=== PATIENT | male | born 1960 | race African-American/Black ===

== ENCOUNTER 2024-03-24 13:52 | Inpatient (IN) | payer OTHER ==
[2024-03-24] MEDS ORDERED: ACETAMINOPHEN 500 MG TAB ONE (14:36)
[2024-03-24] MEDS ORDERED: IBUPROFEN 400 MG TAB ONE (14:36)
[2024-03-24] MEDS ORDERED: CEFTRIAXONE 2000 MG/VIAL ONE (14:41)
[2024-03-24] MEDS ORDERED: levoFLOXacin 750 MG TAB ONE (14:41)
[2024-03-24] MEDS ORDERED: NA CHLORIDE 0.9% 3,000 ML ONE (14:42)
[2024-03-24 15:06] LABS: PT Prothrombin Time 13.1 SECONDS (9.4-12.5); Protime INR 1.18
[2024-03-24 15:08] LABS: Absolute Basophils 0.1 K/uL (0-0.5); Absolute Lymphocytes (CBC) 2.5 K/uL (0.7-4.9); Absolute Monocytes 1.5 K/uL (0.1-1.3); Absolute Neutrophil 6.7 K/uL (1.8-8.0); Basophils % 0.6 % (0-1.3); Eosinophils % 0.1 % (0-4.4); Hematocrit 40.2 % (39.6-49.0); Hemoglobin 13.3 g/dL (13.6-17.9); Lymphocytes % 22.9 % (15.3-44.8); MCH 27.3 pg (27.0-35.0); MCV 82.9 fL (80-100); MPV 8.2 fL (7.6-11.3); Neutrophils % 62.4 % (41.7-73.7); Nucleated Red Blood Cells % 0.1 % (0-0); Platelets 190 thou/uL (152-406); RBC Red Blood Cell Count 4.85 M/uL (4.33-5.43); Red Cell Distribution Width 15.1 % (12.1-15.2)
--- NOTE | 2024-03-24 15:19 | RAD REPORT ---
EXAM DESCRIPTION: Sylvia Single View03/24/2024 2:55 pm CLINICAL HISTORY: Fever COMPARISON: none FINDINGS: The lungs appear clear of acute infiltrate. The heart is normal size IMPRESSION: No acute abnormalities displayed
[2024-03-24 15:22] LABS: Albumin/Globulin Ratio 0.5 (1.1-1.8); Anion Gap 11.3 mEq/L (5.0-15.0); Bilirubin Direct 0.3 mg/dL (0-0.2); Bilirubin Indirect, Calculated 0.5 mg/dL (0.2-0.8); Bilirubin Total 0.8 mg/dL (0.2-1.0); Globulin 5.5 g/dL (2.3-3.5); Magnesium 1.9 mg/dL (1.6-2.4); Potassium 3.3 mEq/L (3.5-5.1); Protein, Total 8.5 g/dL (6.4-8.2); Troponin High Sensitivity 42.3 pg/mL (<58.9)
[2024-03-24 16:23] LABS: White Blood Cell Scan OK (OK)
[2024-03-24 16:24] LABS: Blood Morphology Comment NOT SEEN (NOT SEEN); Platelet Estimate ADEQ
[2024-03-24] MEDS ORDERED: POTASSIUM 25 MEQ EFFERV TAB ONE (16:57)
[2024-03-24 17:00] LABS: Specific Gravity > 1.030 (1.005-1.030); Sqamous Epithelial <5 /HPF (None Seen); Urine Bacteria None Seen /HPF (<20); Urine Bilirubin NEGATIVE (Negative); Urine Blood 2+ (Negative); Urine Clarity Extremely Turbid (Clear); Urine Color Yellow (Yellow); Urine Culture Reflex Order REFLEXED; Urine Glucose NEGATIVE (Negative); Urine Ketones TRACE (Negative); Urine Microscopic Reflex YN ORDER UMIC; Urine Mucus Slight /HPF (None Seen); Urine Nitrite NEGATIVE (Negative); Urine Protein 1+ (Negative); Urine RBC 21-50 /HPF (None Seen); Urine Urobilinogen 1+ (Normal); Urine WBC >50 /HPF (<5); Urine pH 5.5 (5.0-7.0)
--- NOTE | 2024-03-24 17:07 | RAD REPORT ---
EXAM DESCRIPTION: CT - Abdomen Pelvis W Contrast - 03/24/2024 4:34 pm CLINICAL HISTORY: Abdominal pain COMPARISON: 2014 TECHNIQUE: Computed axial tomography of the abdomen pelvis was obtained. 100 cc Isovue-300 was admin istered intravenously. Oral contrast was not requested which limits evaluation of bowel and appendix All CT scans are performed using dose optimization technique as appropriate and may include automated exposure control or mA/KV adjustment according to patient size. FINDINGS: 6.5 centimeter hepatic cyst previously measured 3.5 centimeters. Additional smaller hepati c cysts are present. Spleen, pancreas, adrenals are unremarkable. Small right renal cyst. 1 centimeter low to intermediate density mass upper pole left kidney. This is at the site of a previo us 4.5 centimeter simple cyst. Normal appendix. No evidence diverticulitis. Prostate gland mildly moderately enlarged Lucent and sclerotic areas are present throughout the sacrum without significant change. IMPRESSION: Hepatic cysts. Largest 6.3 centimeters 1 centimeter mass left kidney probably is the residua of a cyst. It is recommended that the patient a followup renal ultrasound in 1 year for re-evaluation. Lucent and sclerotic areas are present throughout the sacrum without significant change presumably Pa get's disease
--- NOTE | 2024-03-24 17:19 | EDPHYS ---
Physician Documentation [facility] Name: Davy Edwards Age: 63 yrs Sex: Male : 1960 Arrival Date: 03/24/2024 Time: 13:52 Bed 3 Private MD: ED Physician Taurus Johns HPI: 03/24 15:26 This 63 yrs old Black Male presents to ER via Ambulatory with complaints of Urinary jody Problem. 15:26 The patient presents with urinary symptoms, dysuria, urinary frequency, retention. jody Onset: The symptoms/episode began/occurred 2 day(s) ago. Modifying factors: The symptoms are alleviated by nothing, the symptoms are aggravated by urinating. fever , dusuria. Associated signs and symptoms: Pertinent positives: dysuria, fever. The patient reports fever, that was measured at 103 degrees Fahrenheit. Modifying factors: there are no obvious modifying factors. Associated signs and symptoms: Pertinent positives: chills, nausea. Historical: - Allergies: 14:11 No Known Allergies; cm10 - Home Meds: 14:11 Lisinopril Oral [Active]; hydrochlorothiazide Oral [Active]; pravastatin oral [Active]; cm10 - PMHx: 14:11 Hypertensive disorder; Hypercholesterolemia; cm10 - PSHx: 14:11 None; cm10 - Immunization history:: Adult Immunizations up to date. - Infectious Disease History:: Denies. - Social history:: Smoking status: Patient denies any tobacco usage or history of. - Family history:: not pertinent. ROS: 15:26 Eyes: Negative for injury, pain, redness, and discharge, ENT: Negative for injury, jody pain, and discharge, Neck: Negative for injury, pain, and swelling, Cardiovascular: Negative for chest pain, palpitations, and edema, Respiratory: Negative for shortness of breath, cough, wheezing, and pleuritic chest pain, Abdomen/GI: Negative for abdominal pain, nausea, vomiting, diarrhea, and constipation, Back: Negative for injury and pain, : Negative for injury, bleeding, discharge, and swelling, MS/Extremity: Negative for injury and deformity, Skin: Negative for injury, rash, and discoloration, Neuro: Negative for headache, weakness, numbness, tingling, and seizure, Psych: Negative for depression, anxiety, suicide ideation, homicidal ideation, and hallucinations, Allergy/Immunology: Negative for hives, rash, and allergies, Endocrine: Negative for neck swelling, polydipsia, polyuria, polyphagia, and marked weight changes, Hematologic/Lymphatic: Negative for swollen nodes, abnormal bleeding, and unusual bruising, 15:26 Constitutional: Positive for body aches, chills, fever, malaise, 15:26 : Positive for urinary frequency, small amounts, burning with urination, difficulty urinating, foul smelling urine, Exam: 15:32 Head/Face: Normocephalic, atraumatic. Eyes: Pupils equal round and reactive to light, jody extra-ocular motions intact. Lids and lashes normal. Conjunctiva and sclera are non-icteric and not injected. Cornea within normal limits. Periorbital areas with no swelling, redness, or edema. ENT: Nares patent. No nasal discharge, no septal abnormalities noted. Tympanic membranes are normal and external auditory canals are clear. Oropharynx with no redness, swelling, or masses, exudates, or evidence of obstruction, uvula midline. Mucous membranes moist. Neck: Trachea midline, no thyromegaly or masses palpated, and no cervical lymphadenopathy. Supple, full range of motion without nuchal rigidity, or vertebral point tenderness. No Meningismus. Chest/axilla: Normal chest wall appearance and motion. Nontender with no deformity. No lesions are appreciated. Cardiovascular: Regular rate and rhythm with a normal S1 and S2. No gallops, murmurs, or rubs. Normal PMI, no JVD. No pulse deficits. Respiratory: Lungs have equal breath sounds bilaterally, clear to auscultation and percussion. No rales, rhonchi or wheezes noted. No increased work of breathing, no retractions or nasal flaring. Abdomen/GI: Soft, non-tender, with normal bowel sounds. No distension or tympany. No guarding or rebound. No evidence of tenderness throughout. Back: No spinal tenderness. No costovertebral tenderness. Full range of motion. Skin: Warm, dry with normal turgor. Normal color with no rashes, no lesions, and no evidence of cellulitis. MS/ Extremity: Pulses equal, no cyanosis. Neurovascular intact. Full, normal range of motion. Neuro: Awake and alert, GCS 15, oriented to person, place, time, and situation. Cranial nerves II-XII grossly intact. Motor strength 5/5 in all extremities. Sensory grossly intact. Cerebellar exam normal. Normal gait. Psych: Awake, alert, with orientation to person, place and time. Behavior, mood, and affect are within normal limits. 15:32 Constitutional: The patient appears febrile, obese, 15:32 ECG was reviewed by the Attending Physician. 15:32 : CVA tenderness, is absent, Male external genitalia: normal, Bladder: is normal, Vital Signs: 14:09 BP 137 / 83; Pulse 110; Resp 19; Temp 103(O); Pulse Ox 98% ; Weight 99.79 kg; Height 5 cm10 ft. 10 in. ; Pain 7/10; 14:33 BP 111 / 69; Pulse 100; Resp 18; Pulse Ox 97% ; ko1 15:41 BP 125 / 79; Pulse 103; Resp 18; Pulse Ox 99% ; ko1 15:51 Temp 99.7(O); ko1 17:20 BP 142 / 83; Pulse 92; Resp 16; Temp 98.9(O); Pulse Ox 99% ; ko1 14:09 Body Mass Index 31.57 (99.79 kg, 177.8 cm) cm10 14:09 Pain Scale: Adult cm10 MDM: 14:02 Patient medically screened. jody 15:28 Differential diagnosis: nonspecific abdominal pain, UTI, urinary retention, jody prostatitis, urethritis, viral Infection, bacterial infection, URI, bronchitis, UTI. Differential Diagnosis altered mental status, sepsis, flu. Data reviewed: vital signs, nurses notes, lab test result(s), radiologic studies, CT scan. Consideration of Admission/Observation Patient was admitted/placed on observation. Escalation of care including admission/observation considered. I considered the following discharge prescriptions or medication management in the emergency department Medications were administered in the Emergency Department. See MAR. Independent interpretation of the following test(s) in the Emergency Department EKG: See my EKG interpretation above. Test considered but Not performed: Ultrasound no abd usg. Historians other than the Patient: Spouse/Significant Other: well informed. Care significantly affected by the following chronic conditions: Hypertension, high chlesterol, uti. Counseling: I had a detailed discussion with the patient and/or guardian regarding the historical points, exam findings, and any diagnostic results supporting the discharge/admit diagnosis, lab results, radiology results, the need for further work-up and treatment in the hospital. 03/24 14:02 Order name: Urinalysis w/ reflexes; Complete Time: 17:08 [facility] 03/24 14:38 Order name: Basic Metabolic Panel; Complete Time: 15:25 [facility] 03/24 14:38 Order name: CBC with Diff; Complete Time: 16:50 [facility] 03/24 14:38 Order name: LFT's; Complete Time: 15:25 [facility] 03/24 14:38 Order name: Magnesium; Complete Time: 15:25 [facility] 03/24 14:38 Order name: NT PRO-BNP; Complete Time: 15:25 [facility] 03/24 14:38 Order name: PT-INR; Complete Time: 15:25 [facility] 03/24 14:38 Order name: Troponin HS; Complete Time: 15:25 [facility] 03/24 14:38 Order name: Blood Culture Adult (2) [facility] 03/24 14:38 Order name: Lipase; Complete Time: 15:25 [facility] 03/24 14:38 Order name: Lactate w/ 2H reflex if indic.; Complete Time: 15:25 [facility] 03/24 15:13 Order name: CBC Smear Scan; Complete Time: 16:50 [facility] 03/24 15:44 Order name: Urine Culture [facility] 03/24 18:34 Order name: Urinalysis w/ reflexes [facility] 03/24 18:34 Order name: Basic Metabolic Panel [facility] 03/24 18:34 Order name: Basic Metabolic Panel [facility] 03/24 14:38 Order name: XRAY Chest (1 view); Complete Time: 15:25 [facility] 03/24 14:38 Order name: CT Abd/Pelvis - IV Contrast Only [facility] 03/24 14:38 Order name: EKG; Complete Time: 14:39 [facility] 03/24 14:38 Order name: Cardiac monitoring; Complete Time: 15:01 [facility] 03/24 14:38 Order name: EKG - Nurse/Tech; Complete Time: 14:47 [facility] 03/24 14:38 Order name: IV Saline Lock; Complete Time: 15:01 [facility] 03/24 14:38 Order name: Labs collected and sent; Complete Time: 15:01 [facility] 03/24 14:38 Order name: O2 Per Protocol; Complete Time: 14:39 jody 03/24 14:38 Order name: O2 Sat Monitoring; Complete Time: 14:39 jody EC:32 Rate is 112 beats/min. Rhythm is regular. QRS Lucile is Normal. NC interval is normal. jody QRS interval is normal. QT interval is normal. No Q waves. T waves are Normal. No ST changes noted. Clinical impression: Sinus tachycardia and No evidence of ischemia. Interpreted by me. Reviewed by me. Administered Medications: 14:39 Drug: Acetaminophen PO 1000 mg PO once Route: PO; ko1 15:10 Follow up: Response: No adverse reaction ko1 15:55 Follow up: Response: Temperature is decreased jl7 14:39 Drug: Ibuprofen PO 800 mg PO once Route: PO; ko1 15:10 Follow up: Response: No adverse reaction ko1 15:55 Follow up: Response: No adverse reaction; Temperature is decreased jl7 15:00 Drug: NS 0.9% IV 1000 ml IV at 1 bolus Per protocol; 1000 mL bolus Route: IV; Rate: 1 jl7 bolus; Site: right antecubital; 15:45 Follow up: Response: No adverse reaction; IV Status: Completed infusion; IV Intake: ko1 1000ml 15:01 Drug: LevOfloxacin PO 750 mg PO once Route: PO; jl7 15:40 Follow up: Response: No adverse reaction ko1 15:01 Drug: Rocephin IV 2 grams IV at per protocol once; Given slow IV push per [employer] jl7 instructions Route: IV; Rate: per protocol; Site: right antecubital; 15:41 Follow up: Response: No adverse reaction; IV Status: Completed infusion; IV Intake: [id number] 15:40 Drug: NS 0.9% IV 1000 ml IV at 1 bolus Per protocol; 1000 mL bolus Route: IV; Rate: 1 ko1 bolus; Site: right antecubital; 16:45 Follow up: Response: No adverse reaction; IV Status: Completed infusion; IV Intake: ko1 1000ml 16:59 Drug: NS 0.9% IV 1000 ml IV at 1 bolus Per protocol; 1000 mL bolus Route: IV; Rate: 1 ko1 bolus; Site: right antecubital; 16:59 Drug: Potassium PO Effervescent Tablet 25 mEq PO once; dissolve in 4 ounces of water or ko1 juice Route: PO; 17:21 Follow up: Response: No adverse reaction ko1 Disposition Summary: 03/24/24 17:18 Hospitalization Ordered Notes: Hospitalization Status: Inpatient Admission jody Provider: Rayo Sanchez cha Location: Telemetry/MedSurg (Inpatient) jody Condition: Fair jody Problem: new jody Symptoms: have improved jody Bed/Room Type: Standard jody Room Assignment: 230(03/24/24 19:43) eb Diagnosis - UTI/ Urinary tract infection, site not specified jody - Acute prostatitis jody - Fever, unspecified joyd Forms: - Medication Reconciliation Form jody - SBAR form jody - Leadership Thank You Letter jody Signatures: Dispatcher [employer] EDMS Taurus Johns MD MD cha Leal, Jahala, RN RN jl7 Nyla Weinstein Kathy, RN RN ko1 Ashly James RN RN cm10 Corrections: (The following items were deleted from the chart) 14:39 14:39 BASIC METABOLIC PANEL+C.LAB.BRZ ordered. EDMS EDMS 14:39 14:39 CBC+H.LAB.BRZ ordered. EDMS EDMS 14:39 14:39 HEPATIC FUNCTION+C.LAB.BRZ ordered. EDMS EDMS 14:39 14:39 MAGNESIUM+C.LAB.BRZ ordered. EDMS EDMS 14:39 14:39 PROBNP+C.LAB.BRZ ordered. EDMS EDMS 14:39 14:39 PROTIME (+INR)+COAG.LAB.BRZ ordered. EDMS EDMS 14:39 14:39 Troponin High Sensitivity+C.LAB.BRZ ordered. EDMS EDMS 14:39 14:39 BLOOD CULTURE*+BA.LAB.BRZ ordered. EDMS EDMS 14:39 14:39 LIPASE+C.LAB.BRZ ordered. EDMS EDMS 14:39 14:39 LACTATE+C.LAB.BRZ ordered. EDMS EDMS 18:50 17:18 jody eb 19:43 18:50 215 eb eb
--- NOTE | 2024-03-24 17:19 | ER ---
Nurse's Notes [facility] Name: Davy Edwards Age: 63 yrs Sex: Male : 1960 Arrival Date: 03/24/2024 Time: 13:52 Bed 3 Private MD: Diagnosis: UTI/ Urinary tract infection, site not specified;Acute prostatitis;Fever, unspecified Presentation: 03/24 14:09 Chief complaint: Patient states: Headache, chills and difficulty urinating onset cm10 . Pt states that he has pressure in his abdomen. Coronavirus screen: Client denies travel out of the [place] in the last 14 days. Ebola Screen: Patient denies travel to an Ebola-affected area in the 21 days before illness onset. No symptoms or risks identified at this time. Initial Sepsis Screen: Does the patient meet any 2 criteria? No. Patient's initial sepsis screen is negative. Does the patient have a suspected source of infection? No. Patient's initial sepsis screen is negative. Risk Assessment: Do you want to hurt yourself or someone else? Patient reports no desire to harm self or others. Onset of symptoms was March 24, 2024. 14:09 Method Of Arrival: Ambulatory cm10 14:09 Acuity: RON 2 cm10 Triage Assessment: 14:13 General: Appears in no apparent distress. comfortable, Behavior is calm, cooperative. cm10 Neuro: No deficits noted. Level of Consciousness is awake, alert, obeys commands, Oriented to person, place, time, situation, Appropriate for age. Respiratory: No deficits noted. Airway is patent Respiratory effort is even, unlabored, Respiratory pattern is regular, symmetrical. Historical: - Allergies: 14:11 No Known Allergies; cm10 - Home Meds: 14:11 Lisinopril Oral [Active]; hydrochlorothiazide Oral [Active]; pravastatin oral [Active]; cm10 - PMHx: 14:11 Hypertensive disorder; Hypercholesterolemia; cm10 - PSHx: 14:11 None; cm10 - Immunization history:: Adult Immunizations up to date. - Infectious Disease History:: Denies. - Social history:: Smoking status: Patient denies any tobacco usage or history of. - Family history:: not pertinent. Screenin:47 [facility] ED Fall Risk Assessment (Adult) History of falling in the last 3 months, ko1 including since admission No falls in past 3 months (0 pts) Confusion or Disorientation No (0 pts) Intoxicated or Sedated No (0 pts) Impaired Gait No (0 pts) Mobility Assist Device Used No (0 pt) Altered Elimination No (0 pt) Score/Fall Risk Level 0 - 2 = Low Risk Oriented to surroundings, Maintained a safe environment, Educated pt \T\ family on fall prevention, incl call for assistance when getting out of bed, Assessed \T\ reinforced patient's understanding of fall precautions, Provided non-skid footwear, Hourly rounding (assess needs \T\ fall precautionary measures) done. Abuse screen: Denies threats or abuse. Denies injuries from another. Nutritional screening: No deficits noted. Tuberculosis screening: No symptoms or risk factors identified. Assessment: 14:50 General: Appears uncomfortable, ill, Behavior is calm, cooperative, appropriate for ko1 age. Pain: Complains of pain in back. Neuro: No deficits noted. Cardiovascular: No deficits noted. Respiratory: No deficits noted. GI: No deficits noted. :. EENT: No deficits noted. Derm: Skin temperature is hot. Musculoskeletal: No deficits noted. 14:54 : No deficits noted. ko1 15:55 Reassessment: Patient appears in no apparent distress at this time. Patient and/or jl7 family updated on plan of care and expected duration. Pain level reassessed. Patient is alert, oriented x 3, equal unlabored respirations, skin warm/dry/pink. Patient states feeling better. Patient states symptoms have improved. Vital Signs: 14:09 BP 137 / 83; Pulse 110; Resp 19; Temp 103(O); Pulse Ox 98% ; Weight 99.79 kg; Height 5 cm10 ft. 10 in. ; Pain 7/10; 14:33 BP 111 / 69; Pulse 100; Resp 18; Pulse Ox 97% ; ko1 15:41 BP 125 / 79; Pulse 103; Resp 18; Pulse Ox 99% ; ko1 15:51 Temp 99.7(O); ko1 17:20 BP 142 / 83; Pulse 92; Resp 16; Temp 98.9(O); Pulse Ox 99% ; ko1 14:09 Body Mass Index 31.57 (99.79 kg, 177.8 cm) cm10 14:09 Pain Scale: Adult cm10 ED Course: 13:55 Patient arrived in ED. ra3 14:02 Taurus Johns MD is Attending Physician. jody 14:11 Triage completed. cm10 14:13 Arm band placed on Patient placed in an exam room, on a stretcher. cm10 14:18 Mary Beth Zee, RN is Primary Nurse. ko1 14:47 Patient has correct armband on for positive identification. Bed in low position. Call ko1 light in reach. Side rails up X2. Provided Education on: labs, meds. Client placed on continuous cardiac and pulse oximetry monitoring. NIBP monitoring applied. radiation monitor on. Door closed. Noise minimized. Lights dimmed. Warm blanket given. Pillow given. 14:47 EKG done, by ED staff, reviewed by Taurus Johns MD. ko1 14:57 XRAY Chest (1 view) In Process Unspecified. EDMS 15:38 No provider procedures requiring assistance completed. ko1 15:41 Blood Culture Adult (2) Sent. ko1 15:41 CBC Smear Scan Sent. ko1 16:36 CT Abd/Pelvis - IV Contrast Only In Process Unspecified. EDMS 16:50 Urine Culture Sent. ko1 16:50 Urinalysis w/ reflexes Sent. ko1 17:18 Rayo Sanchez MD is Hospitalizing Provider. [facility] 17:19 Patient admitted, IV remains in place. ko1 Administered Medications: 14:39 Drug: Acetaminophen PO 1000 mg PO once Route: PO; ko1 15:10 Follow up: Response: No adverse reaction ko1 15:55 Follow up: Response: Temperature is decreased jl7 14:39 Drug: Ibuprofen PO 800 mg PO once Route: PO; ko1 15:10 Follow up: Response: No adverse reaction ko1 15:55 Follow up: Response: No adverse reaction; Temperature is decreased jl7 15:00 Drug: NS 0.9% IV 1000 ml IV at 1 bolus Per protocol; 1000 mL bolus Route: IV; Rate: 1 jl7 bolus; Site: right antecubital; 15:45 Follow up: Response: No adverse reaction; IV Status: Completed infusion; IV Intake: ko1 1000ml 15:01 Drug: LevOfloxacin PO 750 mg PO once Route: PO; jl7 15:40 Follow up: Response: No adverse reaction ko1 15:01 Drug: Rocephin IV 2 grams IV at per protocol once; Given slow IV push per pharmarcy jl7 instructions Route: IV; Rate: per protocol; Site: right antecubital; 15:41 Follow up: Response: No adverse reaction; IV Status: Completed infusion; IV Intake: [id number] 15:40 Drug: NS 0.9% IV 1000 ml IV at 1 bolus Per protocol; 1000 mL bolus Route: IV; Rate: 1 ko1 bolus; Site: right antecubital; 16:45 Follow up: Response: No adverse reaction; IV Status: Completed infusion; IV Intake: ko1 1000ml 16:59 Drug: NS 0.9% IV 1000 ml IV at 1 bolus Per protocol; 1000 mL bolus Route: IV; Rate: 1 ko1 bolus; Site: right antecubital; 16:59 Drug: Potassium PO Effervescent Tablet 25 mEq PO once; dissolve in 4 ounces of water or ko1 juice Route: PO; 17:21 Follow up: Response: No adverse reaction ko1 Medication: 15:38 VIS not applicable for this client. ko1 Intake: 15:41 IV: 10ml; Total: 10ml. ko1 15:45 IV: 1000ml; Total: 1010ml. ko1 16:45 IV: 1000ml; Total: 2010ml. ko1 Outcome: 17:18 Decision to Hospitalize by Provider. jody 17:19 Admitted to ER Hold. Please see [facility] for further documentation. ko1 17:19 Condition: stable 17:19 Instructed on the need for admit, 20:17 Patient left the ED. iw Signatures: Dispatcher [employer] EDTaurus Ngo MD MD cha Williams, Irene RN Prem Mendoza RN RN jl7 Mary Beth Zee RN RN basia1 Ashly James RN RN cm10 Carolyn Talley ra3 Corrections: (The following items were deleted from the chart) 14:16 14:09 Acuity: RON 3 cm10 cm10
[2024-03-24] MEDS ORDERED: ONDANSETRON 4 MG/2 ML VIAL IV PRN (18:29)
[2024-03-24] MEDS ORDERED: HYDROMORPHONE HCL 1 MG/ML INJ IV PRN (18:32)
--- NOTE | 2024-03-24 18:36 | P.HP ---
Certification for Inpatient Patient admitted to: Inpatient With expected LOS: >2 Midnights Practitioner: I am a practitioner with admitting privileges, knowledge of patient current condition, hospital course, and medical plan of care. Services: Services provided to patient in accordance with Admission requirements found in Title 42 Section 412.3 of the Code of Federal Regulations Patient History Date of Service: 03/24/24 Reason for admission: UTI History of Present Illness: Patient is a 63 year old male who is presenting with acutely worsening urinary symptoms. His symptoms started 2 days with fever. He also developed urinary retention. He spiked a fever of 103 degrees. Work up in the ER showed abnormal UA. CT with mildly enlarged prostate. Physical Examination - Physical Exam General: In no apparent distress HEENT: Atraumatic, Normocephalic Neck: Supple Respiratory: Clear to auscultation bilaterally, Normal air movement Cardiovascular: No edema, Normal pulses, Regular rate/rhythm, Normal S1 S2 Neurological: Normal speech - Studies Laboratory Data (last 24 hrs) 03/24/24 03/24/24 03/24/24 14:50 14:50 14:50 WBC 10.80 Hgb 13.3 L Hct 40.2 Plt Count 190 PT 13.1 H INR 1.18 Sodium 133 L Potassium 3.3 L BUN 22 H Creatinine 1.69 H Glucose 104 Magnesium 1.9 Total Bilirubin 0.8 AST 76 H ALT 95 H Alkaline Phosphatase 243 H Lipase 37 Assessment and Plan - Problems (Diagnosis) (1) UTI (urinary tract infection) Current Visit: Yes Status: Acute (2) Hypertension Current Visit: Yes Status: Acute (3) Hyperlipidemia Current Visit: Yes Status: Acute - Plan Assessment This a generally healthy 63 year old male who is being admitted with: UTI EMMANUEL HTN HLD PLAN: Admit inpatient Start patient on levofloxacin and IV fluid Follow Urine and blood cx Patient is full code - Advance Directives Does patient have a Living Will: No Does patient have a Durable POA for Healthcare: No
[2024-03-24] MEDS: D5 0.45 NS 1,000 ML IV SCH (20:39)
[2024-03-24 23:54] LABS: Specific Gravity > 1.030 (1.005-1.030); Sqamous Epithelial None Seen /HPF (None Seen); Urine Bacteria None Seen /HPF (<20); Urine Bilirubin NEGATIVE (Negative); Urine Blood 3+ (OVER) (Negative); Urine Clarity Clear (Clear); Urine Color Yellow (Yellow); Urine Culture Reflex Order NOT NEEDED; Urine Glucose NEGATIVE (Negative); Urine Ketones NEGATIVE (Negative); Urine Microscopic Reflex YN ORDER UMIC; Urine Mucus Slight /HPF (None Seen); Urine Nitrite NEGATIVE (Negative); Urine Protein 1+ (Negative); Urine RBC >50 /HPF (None Seen); Urine Urobilinogen 1+ (Normal); Urine pH 5.5 (5.0-7.0)
[2024-03-25] MEDS: HEPARIN 5000 UNIT/ML 1 ML VIAL SQ SCH (00:39)
[2024-03-25] MEDS: ACETAMINOPHEN 325 MG TABLET PO PRN ×2 (02:28→12:03)
--- NOTE | 2024-03-25 07:13 | P.PN ---
Date of Service: 03/25/24 Subjective: been dealing with dysuria, urinary frequency/retention for ~2 days feeling constipated last 12-24hrs. Has urge to go +rectal pressure 103 fever in ED, continues with low grade temps 100.4 Woodard placed after admission on floor; felt significant relief after voiding denies any pains ROS: 10 point ROS as noted above, otherwise negative Physical Exam: GEN: Alert, oriented, NAD CV: Sinus Tachycardia, no edema Pulm: Nonlabored respirations on room air, clear bilaterally ABD: Soft, nontender, nondistended Neuro: Normal speech, normal affect Woodard placed after admission (03/24) vitals reviewed Problem List: Acute Prostatitis Dysuria, Urinary Frequency, Urinary Retention secondary to above Elevated LFTs Multiple Hepatic Cysts (largest 6.5 cm); incidental finding EMMANUEL, resolved Hypertension Hyperlipidemia Acute Prostatitis Dysuria, Urinary Frequency, Urinary Retention secondary to above Presents with 2 days of dysuria, urinary frequency/retention, associated with chills. No fever at home. has dealt with intermittent urinary symptoms for few months since ~November. But never to this degree/severity also feeling constipated last 12-24hrs. Has urge to have BM. +rectal pressure CT abdomen (03/24): subtle 2.4 cm area within right aspect of prostate with mildly diminished attenuation. Moderately Enlarged prostate gland; - findings may indicate prostatitis also noted: Lucent and sclerotic areas are present throughout the sacrum presumably Paget's disease. Woodard placed after admission (03/24) given levaquin, rocephin, ~3L IVF bolus in ED continue IV levaquin (03/25-) follow urine and blood cultures 103 fever, no leukocytosis pain control start flomax void trial in a few days Elevated LFTs Multiple Hepatic Cysts (largest 6.5 cm); incidental finding CT abdomen noted multiple hepatic cysts - 6.3cm largest (previously 3.5 cm in 2014) AST 76 / ALT 95 / ALP 243 unknown origin Daily labs EMMANUEL, resolved CT abdomen 1cm mass left kidney probably residua of cyst f/u 1 year renal ultrasound recommended Creatinine 1.69 on admission possibly secondary to dehydration / infxn given 3L IVF bolus in ED resolved with IV hydration Continue to monitor renal function Hypertension Hyperlipidemia confirm home meds, restart as appropriate VTE: Heparin sq Code: Full Dispo: home, ~2-3 days Pending improvement, cultures, afebrile > 24 hours Time Spent Managing Pts Care (In Minutes): 51
[2024-03-25 07:23] LABS: Anion Gap 8.8 mEq/L (5.0-15.0); Potassium 3.8 mEq/L (3.5-5.1)
[2024-03-25] MEDS: Levofloxacin 750mg IV 750 MG/150 ML BAG IV SCH (09:16)
[2024-03-25] MEDS: DOCUSATE NA 100 MG CAP PO SCH (12:03)
[2024-03-25] MEDS ORDERED: HOME MED 1 EA UNK (Pravastatin [Pravachol*] 40 MG/TAB Tab) PO SCH (21:00)
[2024-03-25] MEDS: ATORVASTATIN 10 MG TAB PO SCH (21:00)
[2024-03-25] MEDS ORDERED: DOCUSATE NA 100 MG CAP PO SCH (21:00)
[2024-03-25 22:36] VITALS: BMI 31.5
[2024-03-26 05:02] LABS: Absolute Basophils 0.1 K/uL (0-0.5); Absolute Lymphocytes (CBC) 2.8 K/uL (0.7-4.9); Absolute Monocytes 1.6 K/uL (0.1-1.3); Absolute Neutrophil 6.3 K/uL (1.8-8.0); Basophils % 0.9 % (0-1.3); Eosinophils % 0.1 % (0-4.4); Hematocrit 36.6 % (39.6-49.0); Hemoglobin 12.1 g/dL (13.6-17.9); Lymphocytes % 25.6 % (15.3-44.8); MCH 27.2 pg (27.0-35.0); MCHC 32.9 g/dL (32.0-36.0); MCV 82.7 fL (80-100); MPV 8.4 fL (7.6-11.3); Monocytes % 14.6 % (3.3-12.3); Neutrophils % 58.8 % (41.7-73.7); Platelets 201 thou/uL (152-406); RBC Red Blood Cell Count 4.43 M/uL (4.33-5.43)
[2024-03-26 05:09] LABS: Albumin 2.6 g/dL (3.4-5.0); Albumin/Globulin Ratio 0.5 (1.1-1.8); Anion Gap 8.4 mEq/L (5.0-15.0); Bilirubin Total 0.5 mg/dL (0.2-1.0); Globulin 4.9 g/dL (2.3-3.5); Magnesium 1.7 mg/dL (1.6-2.4); Potassium 3.4 mEq/L (3.5-5.1); Protein, Total 7.5 g/dL (6.4-8.2)
[2024-03-26] MEDS: lisinopriL 20 MG TAB PO SCH (08:48)
--- NOTE | 2024-03-26 10:07 | P.PN ---
Date of Service: 03/26/24 Subjective: feeling better today had small BM yesterday. [place] relief in rectal pressure afterwards low grade 100.1 temp yesterday evening. Afebrile today so far ROS: 10 point ROS as noted above, otherwise negative Physical Exam: GEN: Alert, oriented, NAD CV: Regular rate and rhythm, no edema Pulm: Nonlabored respirations on room air, clear bilaterally ABD: Soft, nontender, nondistended Woodard placed after admission (03/24): clear urine vitals reviewed Problem List: Acute Prostatitis Dysuria, Urinary Frequency, Urinary Retention secondary to above Elevated LFTs Multiple Hepatic Cysts (largest 6.5 cm); incidental finding EMMANUEL, resolved Hypertension Hyperlipidemia Acute Prostatitis Dysuria, Urinary Frequency, Urinary Retention secondary to above Presents with 2 days of dysuria, urinary frequency/retention, associated with chills. No fever at home. has dealt with intermittent urinary symptoms for few months since ~November. also feeling constipated last 12-24hrs. Has urge to have BM. +rectal pressure CT abdomen (03/24): subtle 2.4 cm area within right aspect of prostate with mildly diminished attenuation. Moderately Enlarged prostate gland; - findings may indicate prostatitis also noted: Lucent and sclerotic areas are present throughout the sacrum presumably Paget's disease. given levaquin, rocephin, ~3L IVF bolus in ED Urine cx (03/24): mixed lilia blood cx (03/24): NGTD continue IV levaquin (03/25-) low grade temp 100.1 overnight, no leukocytosis pain control Woodard placed after admission (03/24) Start flomax anticipate voiding trial tomorrow Elevated LFTs Multiple Hepatic Cysts (largest 6.5 cm); incidental finding CT abdomen noted multiple hepatic cysts - 6.3cm largest (previously 3.5 cm in 2014) AST 76 / ALT 95 / ALP 243 unknown origin Daily labs - improving daily EMMANUEL, resolved CT abdomen 1cm mass left kidney probably residua of cyst f/u 1 year renal ultrasound recommended Creatinine 1.69 on admission secondary to dehydration / infxn resolved with IV hydration Continue to monitor renal function IVF dc'd 03/26 Hypertension Hyperlipidemia confirm home meds, restart as appropriate VTE: Heparin sq Code: Full Dispo: home, ~1-2 days Pending improvement, cultures, afebrile > 24 hours Time Spent Managing Pts Care (In Minutes): 51
--- NOTE | 2024-03-26 12:52 | EKG ---
Test Date: 2024-03-24 Test Time: 14:44:19 Set Up And Lay Out Inspector: SOLEDAD MEASUREMENT RESULTS: Intervals: Rate: 112 VT: 204 QRSD: 86 QT: 310 QTc: 423 [place]: P: 58 VT: 204 QRS: 67 T: 40 INTERPRETIVE STATEMENTS: Sinus tachycardia Otherwise normal ECG No previous ECG available for comparison Electronically Signed On 03-26-24 12:48:29 CDT by Rizwan Carson
[2024-03-26] MEDS: CODEINE 30MG/APAP 300MG TAB PO PRN (14:25)
[2024-03-26] MEDS: TAMSULOSIN 0.4 MG SR CAP PO SCH (20:55)
[2024-03-26 22:45] VITALS: O2SAT 97
[2024-03-27 04:59] LABS: Absolute Basophils 0.1 K/uL (0-0.5); Absolute Lymphocytes (CBC) 2.6 K/uL (0.7-4.9); Absolute Monocytes 1.3 K/uL (0.1-1.3); Absolute Neutrophil 7.1 K/uL (1.8-8.0); Basophils % 0.5 % (0-1.3); Eosinophils % 0.1 % (0-4.4); Hematocrit 35.6 % (39.6-49.0); Hemoglobin 11.8 g/dL (13.6-17.9); Lymphocytes % 23.4 % (15.3-44.8); MCH 27.1 pg (27.0-35.0); MCV 82.1 fL (80-100); MPV 7.9 fL (7.6-11.3); Monocytes % 11.7 % (3.3-12.3); Neutrophils % 64.3 % (41.7-73.7); Nucleated Red Blood Cells % 0.1 % (0-0); Platelets 222 thou/uL (152-406); RBC Red Blood Cell Count 4.34 M/uL (4.33-5.43); Red Cell Distribution Width 14.8 % (12.1-15.2)
[2024-03-27 05:17] LABS: Albumin 2.5 g/dL (3.4-5.0); Albumin/Globulin Ratio 0.5 (1.1-1.8); Anion Gap 7.8 mEq/L (5.0-15.0); Bilirubin Total 0.5 mg/dL (0.2-1.0); Magnesium 1.9 mg/dL (1.6-2.4); Potassium 3.8 mEq/L (3.5-5.1); Protein, Total 7.5 g/dL (6.4-8.2)
[2024-03-27 10:37] VITALS: BP 139/81; TEMP 96.7
--- NOTE | 2024-03-27 10:56 | P.DS ---
Admission Date: 03/24/24 Discharge Date: 03/27/24 Disposition: ROUTINE DISCHARGE Discharge Condition: FAIR Reason for Admission: UTI Brief History of Present Illness: Patient is a 63 year old male who is presenting with acutely worsening urinary symptoms of 2 days duration, associated with fever. He later developed urinary retention. He spiked a fever of 103 degrees. Work up in the ER showed abnormal UA. CT showed mildly enlarged prostate. Patient was hospitalized for further management. Hospital Course: Patient admitted to the medical floor and the following medical problems addr essed: Diagnosis: Acute Prostatitis Dysuria, Urinary Frequency, Urinary Retention secondary to above Elevated LFTs Multiple Hepatic Cysts (largest 6.5 cm); incidental finding EMMANUEL, resolved Hypertension Hyperlipidemia Acute Prostatitis Dysuria, Urinary Frequency, Urinary Retention secondary to above CT abdomen (03/24): subtle 2.4 cm area within right aspect of prostate with mildly diminished attenuation. Moderately Enlarged prostate gland; - findings may indicate prostatitis. Also noted: Lucent and sclerotic areas are present throughout the sacrum presumably Paget's disease. Patient admitted to the medical floor and up treated with IV Levaquin and IV Rocephin. Urine cx (03/24): mixed lilia blood cx (03/24): NGTD Patient defervesced on antibiotics. Woodard placed after admission (03/24) Urinary retention resolved oral Flomax. Patient able to void after Woodard catheter was removed. He was seen and evaluated by infectious disease Dr. Brewer, who recommended oral Levaquin as an outpatient treatment. Patient discharged with oral Levaquin to complete at least 14 days of treatment. Patient recommended to see a urologist. He mentioned his PCP is assisting with arrangement for him to see a urologist. Prostate biopsy recommended. Elevated LFTs Multiple Hepatic Cysts (largest 6.5 cm); incidental finding CT abdomen noted multiple hepatic cysts - 6.3cm largest (previously 3.5 cm in 2015). Patient is made aware. LFTs elevated-unknown etiology. Patient is aware. Outpatient follow-up is recommended. EMMANUEL, resolved Renal mass/cyst CT abdomen 1cm mass left kidney probably residua of cyst f/u 1 year renal ultrasound recommended Patient is aware. Creatinine 1.69 on admission secondary to dehydration / infxn resolved with IV hydration Hypertension Hyperlipidemia Held hydrochlorothiazide due to hyponatremia. Hydrochlorothiazide replaced with low-dose amlodipine on discharge. Continued lisinopril. Vital Signs/Physical Exam: Temp Pulse Resp BP Pulse Ox 96.7 F L 80 16 139/81 97 03/27/24 08:00 03/27/24 08:00 03/27/24 08:00 03/27/24 08:00 03/27/24 08:00 General: Alert, In no apparent distress, Oriented x3 HEENT: Mucous membr. moist/pink Neck: Supple, JVD not distended Respiratory: Clear to auscultation bilaterally, Normal air movement Cardiovascular: No edema, Regular rate/rhythm, Normal S1 S2 Gastrointestinal: Normal bowel sounds, Soft and benign, Non-distended, No tenderness Musculoskeletal: No swelling Integumentary: No rashes, No cyanosis Neurological: Normal speech, Normal strength at 5/5 x4 extr Laboratory Data at Discharge: WBC 11.10 thou/uL (4.3-10.9) H 03/27/24 04:22 Hgb 11.8 g/dL (13.6-17.9) L 03/27/24 04:22 Hct 35.6 % (39.6-49.0) L 03/27/24 04:22 Plt Count 222 thou/uL (152-406) 03/27/24 04:22 PT 13.1 SECONDS (9.4-12.5) H 03/24/24 14:50 INR 1.18 03/24/24 14:50 Sodium 135 mEq/L (136-145) L 03/27/24 04:22 Potassium 3.8 mEq/L (3.5-5.1) 03/27/24 04:22 BUN 13 mg/dL (7-18) 03/27/24 04:22 Creatinine 1.19 mg/dL (0.70-1.30) 03/27/24 04:22 Glucose 102 mg/dL (74-106) 03/27/24 04:22 Magnesium 1.9 mg/dL (1.6-2.4) 03/27/24 04:22 Total Bilirubin 0.5 mg/dL (0.2-1.0) 03/27/24 04:22 AST 50 U/L (15-37) H 03/27/24 04:22 ALT 73 U/L (16-61) H 03/27/24 04:22 Alkaline Phosphatase 196 U/L (45-117) H 03/27/24 04:22 Lipase 37 U/L (13-75) 03/24/24 14:50 Home Medications: Lisinopril [Zestril] 40 mg PO DAILY 03/25/24 Pravastatin [Pravachol*] 40 mg PO DAILY 03/25/24 Amlodipine [Norvasc*] 5 mg PO DAILY #30 tab 03/27/24 Docusate [Colace Cap*] 100 mg PO BID #30 cap 03/27/24 Hydrocodone 7.5/APAP 325 [[place] 7.5/325 mg] 1 tab PO Q6H PRN #20 tab 03/27/24 Tamsulosin [Flomax*] 0.4 mg PO BEDTIME #30 cap 03/27/24 levoFLOXacin [Levaquin] 750 mg PO DAILY #12 tab 03/27/24 New Medications: Docusate [Colace Cap*] 100 mg PO BID #30 cap Tamsulosin [Flomax*] 0.4 mg PO BEDTIME #30 cap levoFLOXacin [Levaquin] 750 mg PO DAILY #12 tab Hydrocodone 7.5/APAP 325 [[place] 7.5/325 mg] 1 tab PO Q6H PRN #20 tab PRN Reason: Pain Amlodipine [Norvasc*] 5 mg PO DAILY #30 tab Physician Discharge Instructions: You have a renal cyst/mass that need to be followed by your PCP. Some lucency in your prostate gland that need further testing. Diet: AHA Activity: Ad isidro Followup: Beata Cuevas [Primary Care Provider] - 1-2 Weeks Time spent managing pt's care (in minutes): 36
--- NOTE | 2024-03-27 16:20 | CON ---
History Of Present Illness: This is a 63-year-old male with prostatitis and recent urinary tract inf ection. Denies any headache, nausea, vomiting, chest pain, abdominal pain, constipation, diarrhea, c velia in because of unable to urinate and having abdominal pain. On arrival to the ER, he had a fever of 103. Past Medical History: Urinary tract infection, hypertension, hyperlipidemia. Social History: Nonsmoker, nondrinker. Family History: Noncontributory. Medications: Levaquin. See MARs for other medications. Allergies: NO KNOWN DRUG ALLERGIES. Review of Systems: A 10-point review was performed. Physical Examination: General: This is a 63-year-old male, lying in bed, not in any acute cardiopulmonary distress. at the bedside. Vital Signs: Temperature 97, pulse 80, respirations 16, blood pressure 139/81. HEENT unremarkable. Neck: Supple. Lungs: Basal crackles. Heart: S1, S2. Regular. Abdomen: Soft, nontender. Bowel sounds present. Extremities: No edema. Laboratory Data: Shows WBC 11, hemoglobin 11.8, platelets are 222. Chemistry shows BUN of 13, creat inine 1.1. Urinalysis shows WBC of more than 50. Micro data blood cultures negative for [address] abdomen and pelvis shows hepatic cyst, largest 6.3 cm, 1 cm mass in the left kidney, probably in t he residue of the cyst. Lucent and sclerotic areas are present throughout the sacrum without signific ant changes. Presumptively Paget's disease. Prostate gland mildly moderately enlarged. Assessment And Plan: This is a 63-year-old male with recent urinary tract infection and coming in [facility] prostatitis. The patient is currently being treated with Levaquin. We will continue for 2 weeks and to be followed by a urologist. Continue current treatment. Monitor for signs of infection. The patient was instructed if symptoms reoccur to return to the emergency room for further investigation . We will follow the patient closely. Thank you Dr. Jones and Dr. Trevizo for consult. NF/NANCYL Voice ID: [id number] Report ID: [id number]
== END 2024-03-27 12:38 | disposition home or self-care (01) | DRG 690 ==
LOC: ER 13:52 → ERHOLD 18:29 → 2ND 20:01
PROVIDERS: ADMIT Internal Medicine; ATTEND Internal Medicine
PROC: 0T9B70Z Drainage of Bladder with Drainage Device, Via Natural or Artificial Opening (ICD-10-PCS; principal; 2024-03-24)
DX: N39.0 Urinary tract infection, site not specified (principal); N41.0 Acute prostatitis; N17.9 Acute kidney failure, unspecified; E87.1 Hypo-osmolality and hyponatremia; I10 Essential (primary) hypertension; E86.0 Dehydration; K59.00 Constipation, unspecified; N28.1 Cyst of kidney, acquired; E78.00 Pure hypercholesterolemia, unspecified; K76.89 Other specified diseases of liver; N40.1 Benign prostatic hyperplasia with lower urinary tract symptoms; R33.8 Other retention of urine; R79.89 Other specified abnormal findings of blood chemistry; Z79.899 Other long term (current) drug therapy
CPT/HCPCS: 36415; 71045; 74177; 80048; 80053; 80076; 81001; 83605; 83690; 83735; 83880; 84484; 85025; 85610; 87040; 87086; 87088; 93005; 96361; 96365; 99285; J0696; J1644; J7030; J7799; Q9967